=== PATIENT | male | born 1995 | race Two or more races ===

== ENCOUNTER 2020-08-15 10:32 | Emergency (ER) | payer SELFPAY ==
[~2020-08-15] VITALS: Ht 177.8 cm; Wt 95.4 kg
--- NOTE | 2020-08-15 11:04 | PHYS DOC ---
General Adult EDM: Chief Complaint: MULTIPLE COMPLAINTS HPI: HPI: Patient is a 24 year old male who presents with fever, body aches, headache, cough, runny nose, x 4 days. He denies recent travel, chest pain, shortness of breath, cough, dizziness, nausea, vomiting, diarrhea, abdominal pain. Has not been taking any medicines. He is from [facility] and an per diem interpreter phone is used. Rates his pain around a aching 5 out of 10. Denies any history. He has been around other family members the same symptoms. (TIMUR SERRA APRN) Review of Systems: Review of Systems: Constitutional: + fever or chills. [] Eyes: Denies change in visual acuity. [] HENT: Denies nasal congestion or sore throat. [] Respiratory: Denies cough or shortness of breath. [] Cardiovascular: Denies chest pain or edema. [] GI: Denies abdominal pain, nausea, vomiting, bloody stools or diarrhea. [] : Denies dysuria. [] Musculoskeletal: Denies back pain or joint pain. + Generalized body aches [] Integument: Denies rash. [] Neurologic: + headache, denies focal weakness or sensory changes. [] Endocrine: Denies polyuria or polydipsia. [] Lymphatic: Denies swollen glands. [] Psychiatric: Denies depression or anxiety. [] (TIMUR SERRA CUPBOARD BUILDER) Heart Score: C/O Chest Pain: No Risk Factors: Risk Factors: DM, Current or recent (<one month) smoker, HTN, HLP, family history of CAD, obesity. Risk Scores: Score 0 - 3: 2.5% MACE over next 6 weeks - Discharge Home Score 4 - 6: 20.3% MACE over next 6 weeks - Admit for Clinical Observation Score 7 - 10: 72.7% MACE over next 6 weeks - Early Invasive Strategies (TIMUR SERRA APRN) Physical Exam: PE: Constitutional: Well developed, well nourished, no acute distress, non-toxic appearance. [] HENT: Normocephalic, atraumatic, bilateral external ears normal, oropharynx moist, no oral exudates, nose normal. [] Eyes: PERRLA, EOMI, conjunctiva normal, no discharge. [] Neck: Normal range of motion, no tenderness, supple, no stridor. [] Cardiovascular:Heart rate regular rhythm, no murmur [] Lungs & Thorax: Bilateral breath sounds clear to auscultation [] Abdomen: Bowel sounds normal, soft, no tenderness, no masses, no pulsatile masses. [] Skin: Warm, dry, no erythema, no rash. [] Back: No tenderness, no CVA tenderness. [] Extremities: No tenderness, no cyanosis, no clubbing, ROM intact, no edema. [] Neurologic: Alert and oriented X 3, normal motor function, normal sensory function, no focal deficits noted. [] Psychologic: Affect normal, judgement normal, mood normal. [] Normal physical exam (TIMUR SERRA APRN) EKG: EKG: [] (TIMUR SERRA APRN) Radiology/Procedures: Radiology/Procedures: [] Impression: [facility] [address] [place], [place] [id number] IMAGING REPORT Signed PATIENT: ROCK VILLAVICENCIO ACCOUNT: [id number] : 1995 LOCATION: ER AGE: 24 SEX: M EXAM STATUS: REG ER ORD. PHYSICIAN: TIMUR SERRA APRN REASON: covid symptoms, fever PROCEDURE: PORTABLE CHEST 1V Exam Date: 08/15/2020 11:08 AM XR CHEST 1V Indication: Reason: covid symptoms, fever / Spl. Instructions: / History: . FINDINGS/ IMPRESSION: The cardiac silhouette and pulmonary vasculature are within normal limits. There is no focal consolidation, pleural effusion or pneumothorax. The visualized osseous structures are intact. Electronically signed by: Didi Mccarty MD (08/15/2020 11:30 AM) [id number] DICTATED and SIGNED BY: DIDI MCCARTY MD DATE: 08/15/20 [id number] (TIMUR SERRA APRN) Course & Med Decision Making: Course & Med Decision Making Pertinent Labs and Imaging studies reviewed. (See chart for details) COVID-19 CRITERIA: The patient was evaluated during the global COVID-19 pandemic, and that diagnosis was suspected/considered upon their initial presentation. Their evaluation, treatment and testing was consistent with current guidelines for patients who present with complaints or symptoms that may be related to COVID-19. See HPI. Alert and oriented x4. Ambulatory with a steady gait. Abdomen is soft and nontender. Speaks in full clear sentences. Lungs are clear to all station all lobes. Vital signs are within normal limits. Temp is 99.1. [] (TIMUR SERRA APRN) Course & Med Decision Making I oversaw on the above date of service of this patient. This patient was evaluated, examined, treated, and dispositioned from the emergency department by the mid-level practitioner. Although I was working at the time and available for consultation, no assistance was requested and I did not see or immediately direct the care of this patient. I reviewed note and agree to findings, plan of care, and disposition as stated. Electronically signed, Arnav Dubois DO (ARNAV DUBOIS DO) Juanjose Disclaimer: Juanjose Disclaimer: This electronic medical record was generated, in whole or in part, using a voice recognition dictation system. (TIMUR SERRA APRN) COVID-19 Patient Risks: Age 65 or older: No Sign of co-morbidity: No Exp to person + for COVID: No Exp to PUI: No Travel from affected area: No Lower respiratory symptoms: Yes Fever: Yes Other: Yes (bodyaches) (TIMUR SERRA APRN) PPE Use: Full PPE with N95 mask or PAPR: Yes (TIMUR SERRA APRN) Departure Departure Impression: Primary Impression: Cough Additional Impressions: Nasal congestion Fever Qualified Codes: R50.9 - Fever, unspecified Person under investigation for COVID-19 Disposition: HOME / SELF CARE / HOMELESS Condition: STABLE Referrals: NO PCP (PCP) Patient Instructions: Cough, Adult, Fever, Adult Additional Instructions: Follow-up with a primary care provider. Quarantine. Take medication as prescribed and with food. Scripts Acetaminophen (ACETAMINOPHEN) 500 Mg Tablet 1 TAB PO PRN Q6HRS PRN for pain or fever for 15 Days, #60 TAB 0 Refills Prov: TIMUR SERRA APRN 08/15/20 Methylprednisolone (MEDROL) 4 Mg Tab.ds.pk 1 PKG PO UD, #1 PKG Prov: TIMUR SERRA APRN 08/15/20 Azithromycin (AZITHROMYCIN TABLET) 250 Mg Tablet 1 PKG PO UD for 5 Days, #6 TAB 0 Refills 2 the first day followed by 1 for days 2-5 Prov: TIMUR SERRA APRN 08/15/20 TIMUR SERRA APRN Aug 15, 2020 11:04 ARNAV DUBOIS DO Aug 15, 2020 17:16
--- NOTE | 2020-08-15 11:32 | RAD ---
Exam Date: 08/15/2020 11:08 AM XR CHEST 1V Indication: Reason: covid symptoms, fever / Spl. Instructions: / History: . FINDINGS/ IMPRESSION: The cardiac silhouette and pulmonary vasculature are within normal limits. There is no focal consolidation, pleural effusion or pneumothorax. The visualized osseous structures are intact. Electronically signed by: Tyson Mccarty MD (08/15/2020 11:30 AM) [id number]
[2020-08-15 11:49] VITALS: BP 117/66
[2020-08-15] MEDS ORDERED: ACET500T68 PO (12:07)
[2020-08-15] MEDS ORDERED: METH4TAB2 PO (12:07)
[2020-08-15] MEDS ORDERED: AZIT250T6 PO (12:07)
--- NOTE | 2020-08-16 10:22 | NUR ---
IP: Attemtped to contact pt concerning covid results. No answer, left a voicemail to return the call.
== END 2020-08-15 12:25 | disposition home or self-care (01) ==
LOC: ER 10:32
DX: R05 Cough (principal); Z20.822 Contact with and (suspected) exposure to COVID-19; R50.9 Fever, unspecified; R09.81 Nasal congestion
CPT/HCPCS: 71045; 99284; U0003; U0005

== ENCOUNTER 2021-02-05 21:03 | Emergency (ER) | payer SELFPAY ==
[~2021-02-05 21:03] MED LIST: ACET500T68 PO; AZIT250T6 PO; METH4TAB2 PO
== END 2021-02-06 02:01 | disposition left against medical advice (07) ==
LOC: ER 21:03
DX: R50.9 Fever, unspecified (principal); R05.9 Cough, unspecified; J00 Acute nasopharyngitis [common cold]; Z53.21 Procedure and treatment not carried out due to patient leaving prior to being seen by health care provider